=== PATIENT | male | born 2005 | race Caucasian/White ===

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

== ENCOUNTER 2025-01-08 14:13 | Emergency (ER) | payer SELFPAY ==
--- NOTE | ~2025-01-08 | XR_ITS ---
CLINICAL HISTORY: cp 1 view chest x-ray Comparison: CR - XR CHEST 2V - 11/16/24 02:57 EDT Findings: No consolidation or effusion. Heart size is normal. No acute fracture. IMPRESSION: 1. No acute findings. This document has been electronically signed by: Adri Plata MD on 01/08/2025 20:06:36
--- OUTSIDE RECORDS SUMMARY | 2025-01-08 14:13 | XMS_ITS | Encounter Summary ---
Author Organization [facility] Address [address] [place] [address] Phone Care Team Providers Care Physiologist Name Role Phone Kory Barker MD Primary Care Provider [phone] Reason for Visit * Reason Comments ED Admission Encounter Details Date Type Department Care Team ([facility] st Contact Info) Description 01/08/2025 2:13 PM EDT - Present Emergency [facility] - Patient Ping Social History Tobacco Use Types Packs/Day Years [...] AM EDT documented as of this encounter Plan of Treatment Not on file documented as of this encounter Visit Diagnoses Not on filedocumented in this encounter Care Teams Physiologist Relationship Specialty Start Date End Date Kory Barker MD [address] [facility] [place] [address] PCP - General Pediatrics 04/26/24 documented as of this encounter
--- NOTE | 2025-01-08 14:14 | ECG_ITS ---
Test Reason : CP Blood Pressure : */* mmHG Vent. Rate : 84 BPM Atrial Rate : 84 BPM P-R Int : 130 ms QRS Dur : 94 ms QT Int : 350 ms P-R-T Axes : 43 64 42 degrees QTcB Int : 413 ms Normal sinus rhythm with sinus arrhythmia Normal ECG When compared with ECG of 15-Nov-2024 22:41, ST no longer elevated in Lateral leads Referred By: Felicity Sam Electronically Signed By: AMIRA HANSEN MD
[2025-01-08 14:43] VITALS: BP 118/75; PULSE 83; RESP 16; TEMP 36.7; O2SAT 97; BMI 29.1
--- NOTE | 2025-01-08 14:45 | ED.CHESTPAIN ---
HPI - Chest Pain General Chief Complaint: Chest Pain Stated Complaint: Chest pain Time Seen by Provider: 01/08/25 18:23 History of Present Illness HPI narrative: 19-year-old male presents today with having chest pain that is been ongoing for months. Patient was seen previously for this. It is not associated with any leg swelling there is no trauma. There is no history of blood clot no history of cancer patient is from home there is no travel history. Patient claims the pain is fairly constant it is there all day for the last 24 hours. Patient claims is mid chest. Not associated with nausea vomiting no diaphoresis. Patient previously was seen for chest pain was given colchicine. Related Data Previous Rx's ?Medication ?Instructions ?Recorded ibuprofen 600 mg tablet 600 mg PO Q8H PRN fever or pain 11/16/24 #30 tabs colchicine 0.6 mg tablet 0.6 mg PO DAILY #90 tabs 12/07/24 Allergies Allergy/AdvReac Type Severity Reaction Status Date / Time seasonal allergies Allergy Mild Nasal Uncoded 01/08/25 14:45 congestion PMFSH Past Medical History Medical History History of asthma Surgical History H/O knee surgery Family History Family History Mother No problems noted. Father BP (high blood pressure) Social History Social History Alcohol intake: current Alcohol intake frequency: holidays/special occasions only e-Cigarette/Vaping Use: Currently Using Substance Use Type: Marijuana Advance Directives: No Advance Directives Information Provided: No Physical Exam Vital Signs: Vital Signs: Last Vital Signs Temp 97.9 F 01/08/25 19:43 Pulse 70 01/08/25 19:43 Resp 18 01/08/25 19:43 BP 126/83 01/08/25 19:43 Pulse Ox 99 01/08/25 19:43 O2 Del Method Room Air 01/08/25 19:43 BMI result Body Mass Index 29.1 Course Course Course Narrative: This is an RME: Additional HPI, ROS, PE not included below will be deferred to primary provider. RME assessment and note performed by: Felicity Sam PA-C This is a 19-year-old male, with a past medical history of pericarditis diagnosed on 11/16/2024 who presents emergency department Described the pain as a tightness/squeezing pain. Also endorsing increased acid reflux. Abd soft, nontender Plan: labs, ekg, further ER eval Medical Decision Making Medical Decision Making [facility] Narrative: Patient's troponin was negative. CRP is normal. No acute distress. Electrolytes normal. Troponin less than 2.7. History not consistent with ACS. Symptoms the same as prior patient has cardiology follow-up in a week. COVID flu RSV are negative. My interpretation of patient's EKG showed a sinus rhythm heart rate was 75 DE QRS QTC normal no acute ST segment elevation. History not consistent with having pericarditis not consistent with having ACS my interpretation of patient's chest x-ray showed no pneumonia no pneumothorax. Will discharge patient home patient to follow-up with cardiology in 1 week Differential Diagnosis Differential Diagnoses: The differential diagnosis associated with the presentation includes ACS, pneumonia, pneumothorax, pericarditis Admission/Observation Consideration of admission/observation: Escalation of care including admission/observation considered Lab Data [facility] Lab Attestation statement: I reviewed the patient's lab results. 01/08/25 14:56 01/08/25 14:56 Labs: Lab Results 01/08/25 Range/Units 14:56 WBC 6.5 (4.8-10.8) X10*3/uL RBC 4.52 L (4.60-5.80) X10*6/uL Hgb 14.5 (14.0-18.0) g/dl Hct 41.1 L (42.0-52.0) % MCV 90.9 (80.0-98.0) fL MCH 32.1 (27.0-33.0) pg MCHC 35.3 (31.0-36.0) g/dl RDW 11.5 (11.0-16.0) % Plt Count 339 (160-400) X10*3/uL MPV 10.6 (9.4-12.4) fL Immature Gran % (Auto) 0.6 H (0.0-0.4) % Neut % (Auto) 62.3 (45-73) % Lymph % (Auto) 25.7 (20-40) % Harrison % (Auto) 8.7 (2-11) % Eos % (Auto) 1.9 (0-4) % Baso % (Auto) 0.8 (0-2) % Lymph # (Auto) 1.7 (1.2-4.9) X10*3/uL Harrison # (Auto) 0.6 (0.1-1.2) X10*3/uL Eos # (Auto) 0.1 (0.0-0.4) X10*3/uL Baso # (Auto) 0.1 (0.0-0.2) X10*3/uL Abs Immat Gran (auto) 0.04 H (0.00-0.03) X10*3/uL Absolute Neuts (auto) 4.0 (2.0-8.3) x10*3/uL Absolute Nucleated RBC 0.000 (0.0-0.012) X10*3/uL Nucleated RBC % (auto) 0.0 (0.0-0.2) /100WBC Sodium 141 (135-145) mmol/L Potassium 3.7 (3.3-5.1) mmol/L Chloride 106 (96-108) mmol/L Carbon Dioxide 28 (22-29) mmol/L Anion Gap 11 L (12-20) BUN 12 (9-16) mg/dL Creatinine 0.94 (0.5-1.4) mg/dL Estim Creat Clear Calc 144.0 Estimated GFR > 60 Random Glucose 100 (60-115) mg/dL Calcium 9.1 (8.4-10.2) mg/dL Total Bilirubin 0.3 (0.0-1.0) mg/dL Direct Bilirubin 0.1 (0.0-0.5) mg/dL AST 25 (5-37) U/L ALT 54 H (0-40) U/L Alkaline Phosphatase 96 (39-117) U/L Troponin I High Sens < 2.7 D (<3.5-35.0) ng/L C-Reactive Protein 0.19 (< or = 0.50) mg/dL Total Protein 7.3 (6.5-8.0) g/dL Albumin 4.7 (3.5-5.0) g/dL Lipase 17 (8-78) U/L COVID-19 (PRAKASH) Negative (Negative) COVID-19 Clin Com See Note Influenza Type A (REBEL) Negative (Negative) Influenza Type B (REBEL) Negative (Negative) Influenza A & B Note See Note Independent Interpretation I performed an independent interpretation of an: EKG (Sinus heart rate is 75 DE QRS QTC normal no acute ST segment elevation) and Plain X-Ray (Chest x-ray negative no pneumonia no pneumothorax) Radiology Impression Discussion of test interpretation with radiology: I have reviewed the radiologist's reading. External Record Review Previous ED workup was reviewed Social Determinants Patient?s care significantly limited by Social Determinants of Health including: Problems related to primary support group Discharge Plan Discharge Clinical Impression: Chest pain Patient Disposition: Home, Self-Care Instructions: Chest Pain (ED) Prescriptions: No Action ibuprofen 600 mg tablet 600 mg PO Q8H PRN (Reason: fever or pain) Qty: 30 0RF colchicine 0.6 mg tablet 0.6 mg PO DAILY Qty: 90 0RF Referrals: Moises Chapin MD [Physician, Cardiology] Print Language: Israeli
[2025-01-08 15:00] LABS: MANUAL DIFF FLAG NO
[2025-01-08 15:02] LABS: Hematocrit 41.1 % (42.0-52.0); Hemoglobin 14.5 g/dl (14.0-18.0); Imm Gran Abs Auto 0.04 X10*3/uL (0.00-0.03); Imm Gran Pct Auto 0.6 % (0.0-0.4); Lymphocytes Absolute Auto 1.7 X10*3/uL (1.2-4.9); Mean Corpuscular HGB Conc 35.3 g/dl (31.0-36.0); Mean Corpuscular Hemoglobin 32.1 pg (27.0-33.0); Mean Corpuscular Volume 90.9 fL (80.0-98.0); NRBC Abs Auto 0.000 X10*3/uL (0.0-0.012); NRBC Pct Auto 0.0 /100WBC (0.0-0.2); Platelet Count 339 X10*3/uL (160-400); Red Blood Count 4.52 X10*6/uL (4.60-5.80); White Blood Count 6.5 X10*3/uL (4.8-10.8)
[2025-01-08 15:19] LABS: IDNOW Serial# 55D5AD1C; IDNOW Serial# 58CA691E; Influenza B2 Negative (Negative)
[2025-01-08 15:20] LABS: Alanine Aminotransferase 54 U/L (0-40); Albumin Level 4.7 g/dL (3.5-5.0); Alkaline Phosphatase 96 U/L (39-117); Anion Gap 11 (12-20); Aspartate Amino Transferase 25 U/L (5-37); Blood Urea Nitrogen 12 mg/dL (9-16); COVID-19 Test Negative (Negative); Calcium 9.1 mg/dL (8.4-10.2); Carbon Dioxide 28 mmol/L (22-29); Chloride 106 mmol/L (96-108); Creatinine Clr Calc Pharmacy 144.0; Estimated Glomerular Filt Rate > 60; Lipase 17 U/L (8-78); Potassium 3.7 mmol/L (3.3-5.1); Sodium 141 mmol/L (135-145); Total Protein 7.3 g/dL (6.5-8.0)
[2025-01-08 15:27] LABS: Troponin-I High Sensitivity < 2.7 ng/L (<3.5-35.0)
--- OUTSIDE RECORDS SUMMARY | 2025-01-08 18:23 | XMS_ITS | Encounter Summary ---
Author Organization [facility] Address [address] [place] [address] Phone Care Team Providers Care Demolition Crane Operator Name Role Phone Kory Barker MD Primary Care Provider [phone] Encounter Details Date Type Department Care Team (Late st Contact Info) Description 08/31/2016 Documentation [facility] Family Medicine [address] [place] [address] Family Medicine, Physician [address] [place] [address] Social History Tobacco Use Types Packs/Day Years Used Date Smoking Tobacco: Never Assessed Sex and Gender Information Value Date Recorded Sex Assigned at Male 02/19/2020 10:49 AM EDT Legal Sex Male 5:07 PM EDT Gender Identity Male 02/19/2020 10:49 AM EDT Sexual Orientation Straight 02/19/2020 10 :49 AM EDT documented as of this encounter Plan of Treatment Not on file documented as of this encounter Visit Diagnoses Not on filedocumented in this encounter Care Teams Demolition Crane Operator Relationship Specialty Start Date End Date Kory Barker MD [address] [place] [address] PCP - General Pediatrics 04/26/24 documented as of this encounter
--- OUTSIDE RECORDS SUMMARY | 2025-01-08 18:23 | XMS_ITS | Encounter Summary ---
Author Organization [facility] Address [address] [place] [address] Phone Care Team Providers Care Lead Rider Name Role Phone Kory Barker MD Primary Care Provider Encounter Details Date Type Department Care Team (Late st Contact Info) Description 09/23/2016 Documentation [facility] Family Medicine [address] [place] [address] Family Medicine, Physician [address] [place] [address] Social History Tobacco Use Types [...] on filedocumented in this encounter Care Teams Lead Rider Relationship Specialty Start Date End Date Kory Barker MD [address] [place] [address] PCP - General Pediatrics 04/26/24 documented as of this encounter
--- OUTSIDE RECORDS SUMMARY | 2025-01-08 18:23 | XMS_ITS | Clinical Summary ---
Author Organization [facility] Address [address] [facility] [address] [place] [id number] Phone Care Team Providers Care Grip Assembler Name Role Phone Hugo Kim MD Primary Care Provider [phone] Allergies No known active allergies Medications No known medications Social History Tobacco Use Types Packs/Day Years Used Date Smoking Tobacco: Never Assessed Education Answer Date Recorded Are you interested in more education? Not on latosha e 04/25/2024 Are you concerned about learning? Not on file 04/25/2024 No 04/25/2024 No 04/25/2024 Digital Access Answer Date Recorded No 04/25/2024 No 04/25/2024 Reliable internet access at home? Not on file 04/25/2024 Device with a working camera? Not on file Intimate Partner Violence Answer Date R ecorded Are you denied basic needs s uch as food, clothing, or medical care? No 04/25/2024 In the past 12 months have y ou been in a relationship with a person who hurts, threatens, or tries to control you? No 04/25/2024 Are you denied basic needs s uch as food, clothing, or medical care? No 04/25/2024 In the past 12 months have y ou been in a relationship with a person who hurts, threatens, or tries to control you? No 04/25/2024 Sex and Gender Information Value Date Recorded Sex Assigned at Male 04/25/2024 1:59 PM EST Legal Sex Male 1:40 PM EST Gender Identity Male 04/25/2024 1:59 PM EST Sexual Orientation Straight 04/25/2024 1: 59 PM EST Last Filed Vital Signs Vital Sign Reading Time Taken Comments Blood Pressure 128/77 04/25/2024 4:39 PM EST Pulse 85 04/25/2024 4:39 PM EST Temperature 36.9 C (98.4 F) 04/25/2024 4:39 PM EST Respiratory Rate 20 04/25/2024 4:39 PM EST Oxygen Saturation 98% 04/25/2024 4:39 PM EST Inhaled Oxygen Concentration - - Weight 79.4 kg (175 lb) 04/25/2024 1:57 PM EST Height 177.8 cm (5' 10 ) 04/25/2024 1:57 PM EST Body Mass Index 25.11 04/25/2024 1:57 PM EST Body Mass Index Percentile 78.22% 04/25/2024 1:5 7 PM EST Growth Chart: CDC (Boys, 2-2 0 Years) Plan of Treatment Health Maintenance Due Date Last Done Comments DEVELOPMENTAL/BEHAVIORAL SCREENING (PHQ, PSC, or SWYC) 2008 COMBINED DTaP,Tdap,Td (2 - T d or Tdap) 12/06/2016 11/08/2016 DEPRESSION SCREENING 2017 SMOKING Hx and SMOKELESS TOBACCO SCREENING 2018 HPV VACCINES (1 - Male 3-dos e series) 2020 MENINGOCOCCAL VACCINES (B) ( 1 of 2 - Standard) 2021 ADOLESCENT UNIVERSAL LIPID SCREENING 2022 HEPATITIS C SCREENING 2023 HIV ONE-TIME SCREENING (18-6 5 YEARS) 2023 HEPATITIS B VACCINES (1 of 3 - 19+ 3-dose series) 2024 INFLUENZA VACCINE (#1) 2024 COVID-19 VACCINE (1 - 2023-2 5 season) 2024 BMI ASSESSMENT 04/25/2025 04/25/2024 MMR VACCINES Completed 08/06/2009, 06/29/2006 VARICELLA VACCINES Completed 08/06/2009, 06/29/2006 HEPATITIS A VACCINES Aged Out No long er eligible based on patient's age to complete this topic HIB VACCINES Aged Out No longer eligi ble based on patient's age to complete this topic MENINGOCOCCAL VACCINES (ACWY) Aged Out No longer eligible based on patient's age to complete this topic PNEUMOCOCCAL VACCINES (0-49 years) Aged Out No longer eligible b ased on patient's age to complete this topic Medical Devices Not on file Insurance [address] [place], [place] [address] [address] [place] [address] [address] [place] [address] [facility] Care Teams Grip Assembler Relationship Specialty Start Date End Date Huog Kim MD [address] [place] [id number] PCP - General 04/25/24 Additional Source Comments The information contained in this document represents components of the legal health record. It is not the complete legal health record.[facility]
--- OUTSIDE RECORDS SUMMARY | 2025-01-08 18:23 | XMS_ITS | Clinical Summary ---
Author Organization [facility] Address [address] [place] [address] Phone Care Team Providers Care Art Handler Name Role Phone Kory Barker MD Primary Care Provider [phone] Allergies No known active allergies Medications Spacer/Aero-Hold ing Chambers (AeroChamber Plus Juma-Vu) miscIndications: Mild reactive airways disease, unspecified whether persistent Ut dict 1 each 3 05/03/2024 Active budesonide-formo terol (Symbicort) 160-4.5 MCG/ACT inhalerIndicatio ns:Chest pain, unspecified type Inhale 2 puffs 2 (two) times a day. Rinse mouth with water after use, do not swallow. 3 Units 2 05/10/2024 Active Active Problems No known active problems Resolved Problems Problem Noted Date Diagnosed Date Resolved Date COVID-19 vaccine dose declined 03/09/2023 04/28/2024 Mild intermittent asthma without complication 09/17/19 16 03/06/2021 Overview (12/06/2017): No recent albuterol use - 12/17 Intrinsic atopic dermatitis 09/11/2009 04/28/2024 Encounters Date Type Department Care Team Description 01/08/2025 2:13 PM EDT - Present Emergency [facility] - Patient Ping 11/19/2024 Telephone [facility] [place] [address] [place], [place] [id number] Alina Huerta LPN Discharge Follow-Up - ED 11/15/2024 10:38 PM EDT - 11/16/2024 6:04 AM EDT Emergency [facility] - Patient Ping from Last 3 Months Immunizations Immunization Administration Dates Next Due DTaP / Hep B / IPV 2005,2005, 006 DTaP 5 08/06/2009,10/03/2006 H1N1 05/28/2009,03/11/2009 HPV Vaccine 9 Valent 12/07/2018,12/06/2017 Hep A, ped/adol 07/04/2007,06/29/2006 Hep B, ped/adol 2005 Hib (HbOC) 10/03/2006 Hib (PRP-T) 2005,2005,2005 IPV 08/06/2009 Influenza Split 04/16/2013,02/02/2012,01/15/2011 Influenza, injectable, quadr ivalent, preservative free 03/09/2023,02/11/2021,02/19/2020,03/19,02/24/2018,03/03/2017,01/06/2016 ,01/15/2015 Influenza, injectable, trivalent 009,06/28/2007,02/23/2007,03/30 Influenza, intranasal, quadrivalent 03/11/2014 Influenza, intranasal, trivalent 01/22/2010 MMR 08/06/2009 MMRV 06/29/2006 Meningococcal B Trumenba 03/09/2023 Meningococcal Conj (Menactra) MCV4P 11/08/2016 Meningococcal Conj (Menquadfi) MCV4TT 03/09/2023 Pneumococcal Conjugate 10/03/2006,2005,2005,08/18 Tdap 11/08/2016 Varicella 08/06/2009 Family History Medical History Relation Name Comments Hypertension Father Vladislav Jernigan Asthma Half-Sister 1 hilary No Known Problems Half-Sister 2 nykesha Stomach cancer Maternal Grandfather Diabetes Maternal Grandmother Fibromyalgia Maternal Grandmother Hyperlipidemia Maternal Grandmother Osteoporosis Maternal Grandmother Pulmonary embolism Mother Corrinejasmeet Fuentes No Known Problems Sister Sol Jernigan Relation Name Status Comments Father Vladislav Jernigan Alive Father: Ali ve and well, High blood pressure Half-Sister 1 hilary Alive Half-Sister 2 nykesha Alive Maternal Grandfather Maternal Grandmother Mother Corrine Fuentes Alive Mother: pulmonary emboli Other Sister Sol Jernigan Alive Social History Tobacco Use Types Packs/Day Years [...] Orientation Straight 02/19/2020 10 :49 AM EDT Last Filed Vital Signs Vital Sign Reading Time Taken Comments Blood Pressure 113/74 05/10/2024 9:38 AM EST Pulse 71 05/10/2024 9:38 AM EST Temperature 36.7 C (98.1 F) 05/10/2024 9:38 AM EST Respiratory Rate 20 04/11/2019 3:50 PM EST Oxygen Saturation 98% 05/03/2024 9:27 AM EST Inhaled Oxygen Concentration - - Weight 79.9 kg (176 lb 3.2 oz) 05/10/2024 9:38 A M EST Height 177.8 cm (5' 10 ) 04/27/2024 11: 03 AM EST Body Mass Index 25.28 04/27/2024 11:03 AM EST Body Mass Index Percentile 79.22% 05/10/2024 9:3 8 AM EST Growth Chart: [facility] (Boys, 2-2 0 Years) Plan of Treatment Health Maintenance Due Date Last Done Comments Men B Vaccine (2 of 2 - Trum enba SCDM 2-dose series) 09/07/2023 03/09/2023 Influenza Vaccines (#1) 2024 03/09/20 23, 02/11/2021, 02/19/2020, Additional history exists COVID-19 Vaccine (3 - 2024-2 6 season) 2024 10/14/2020, 09/23/2020 DTaP,Tdap,and Td Vaccines (7 - Td or Tdap) 11/08/2026 11/08/2016, 08/06/2009, 10/03/2006, Additional history exists Hepatitis B Vaccines Completed 2005, 2005, 2005, Additional history exists HIB Vaccines Completed 10/03/2006, 12/01, 2005, Additional history exists Pneumococcal Vaccine Completed 10/03/2006, 2005, 2005, Additional history exists Hepatitis A Vaccines Completed 07/04/2007, 06/29/19 07 IPV Vaccines Completed 08/06/2009, 12/01, 2005, Additional history exists MMR Vaccines Completed 08/06/2009, 06/29/2006 Varicella Vaccines Completed 08/06/2009, 06/29/2006 HPV Vaccines Completed 12/07/2018, 12/06/2017 Meningococcal Vaccine Completed 03/09/2023, 017 Insurance [facility] [address] NON PCC [facility] Care Teams Art Handler Relationship Specialty Start Date End Date Kory Barker MD [address] [place] [address] PCP - General Pediatrics 04/26/24
--- OUTSIDE RECORDS SUMMARY | 2025-01-08 18:23 | XMS_ITS | Encounter Summary ---
Author Organization [facility] Address [address] [place] [address] Phone Care Team Providers Care Intermodal Owner Operator Truck Driver Name Role Phone Kory Barker MD Primary Care Provider [phone] Encounter Details Date Type Department Care Team (Late st Contact Info) Description 12/16/2016 Conversion Encounter [facility] [place] [address] [place] [address] Social History Tobacco Use Types Packs/Day Years [...] on filedocumented in this encounter Care Teams Intermodal Owner Operator Truck Driver Relationship Specialty Start Date End Date Kory Barker MD [address] [place] [address] PCP - General Pediatrics 04/26/24 documented as of this encounter
[2025-01-08 19:43] VITALS: BP 126/83; PULSE 70; RESP 18; TEMP 36.6; O2SAT 99
[2025-01-08 21:39] VITALS: BP 126/83; PULSE 70; RESP 18; TEMP 36.6; O2SAT 99
== END 2025-01-08 21:39 | disposition home or self-care (01) ==
PROVIDERS: Emergency Provider Emergency Medicine Emergency Medical Services; PCP Pediatrics
DX: R07.89 Other chest pain (principal); Z79.899 Other long term (current) drug therapy; Z03.818 Encounter for observation for suspected exposure to other biological agents ruled out
CPT/HCPCS: 36415; 71045; 80053; 82248; 83690; 84484; 85025; 85652; 86140; 87502; 87635; 93005; 99283

== ENCOUNTER → 2025-01-08 14:14 | Outpatient (BNV) | payer SELFPAY | PROVIDERS: Emergency Provider Emergency Medicine Emergency Medical Services; PCP Pediatrics; Visit Provider Internal Medicine Cardiovascular Disease | DX: R07.9 Chest pain, unspecified (principal) | CPT/HCPCS: 93010 ==

== ENCOUNTER → 2025-01-08 19:19 | Outpatient (BNV) | payer SELFPAY | PROVIDERS: Emergency Provider Emergency Medicine Emergency Medical Services; PCP Pediatrics; Visit Provider Student in an Organized Health Care Education/Training Program | DX: R07.9 Chest pain, unspecified (principal) | CPT/HCPCS: 71045 ==